=== PATIENT | male | born 1950 | race Caucasian/White ===

== ENCOUNTER 2020-08-08 09:58 | Day surgery (SDC) | payer MEDICARE, OTHER, SELFPAY ==
[2020-07-03 11:15] VITALS: BMI 28.8
[2020-08-04 09:43] VITALS: BMI 27.5
--- NOTE | 2020-08-06 10:57 | HO.ANESPROP2 ---
Documented by User: Alana Belcher 08/06/20 10:58 HPI - Anesthesia Eval Consult details Narrative: 70yo M for Colonoscopy PMFSH Past Medical History Medical History Asthma COVID-19 vaccine series completed GERD (gastroesophageal reflux disease) History of COVID-19 HTN (hypertension) Seasonal allergies Surgical History Surgical History H/O colonoscopy Hx of hernia repair Social History Social History Alcohol intake: current Alcohol intake frequency: 0-2 drinks per day Alcohol type: beer Use of substances other than those prescribed or required for medical reasons: No Are you DNR?: No Advance Directives: No (unknown) Advance Directives Information Provided: No Advance Directives on File: No (unknown) Meds Allergies Allergy/AdvReac Type Severity Reaction Status Date / Time sunflower seed Allergy Severe Hives Verified 08/04/20 09:43 Home Medications Medication Instructions Recorded Confirmed Last Taken Type albuterol sulfate 1 inh INHALATION Q4H PRN 07/03/20 07/03/20 Unknown History fluticasone propion-salmeterol 1 puff PO BID 07/03/20 07/03/20 08/08/20 History [Advair Diskus] hydrochlorothiazide 25 mg PO QAM 07/03/20 07/03/20 Unknown History multivitamin 1 tab PO DAILY 07/03/20 07/03/20 Unknown History quinapril 40 mg PO DAILY 07/03/20 07/03/20 08/08/20 History naproxen sodium [Aleve] 220 mg PO BID PRN 08/04/20 08/04/20 Unknown History Exam Exam Date and Time: August 06, 2020 1057 Height,Weight and Vital Signs: Height 5 ft 10 in Weight 87.09 kg Assessment and Plan Assessment Anesthesia Assessment: Chart Reviewed Documented by User: Regina Ryan 08/08/20 10:50 [facility] Past Medical History Medical History Asthma COVID-19 vaccine series completed GERD (gastroesophageal reflux disease) History of COVID-19 HTN (hypertension) Seasonal allergies Surgical History Surgical History H/O colonoscopy Hx of hernia repair Social History Social History Alcohol intake: current Alcohol intake frequency: 0-2 drinks per day Alcohol type: beer Use of substances other than those prescribed or required for medical reasons: No Are you DNR?: No Advance Directives: No (unknown) Advance Directives Information Provided: No Advance Directives on File: No (unknown) Meds Allergies Allergy/AdvReac Type Severity Reaction Status Date / Time sunflower seed Allergy Severe Hives Verified 08/04/20 09:43 Home Medications Medication Instructions Recorded Confirmed Last Taken Type albuterol sulfate 1 inh INHALATION Q4H PRN 07/03/20 07/03/20 Unknown History fluticasone propion-salmeterol 1 puff PO BID 07/03/20 07/03/20 08/08/20 History [Advair Diskus] hydrochlorothiazide 25 mg PO QAM 07/03/20 07/03/20 Unknown History multivitamin 1 tab PO DAILY 07/03/20 07/03/20 Unknown History quinapril 40 mg PO DAILY 07/03/20 07/03/20 08/08/20 History naproxen sodium [Aleve] 220 mg PO BID PRN 08/04/20 08/04/20 Unknown History Exam Airway Mallampati Class: II TM Dist: >3cm Neck ROM: Full
[2020-08-08 10:39] VITALS: BP 155/87; PULSE 79; RESP 16; TEMP 36.3; O2SAT 98
[2020-08-08] MEDS: Lactated Ringers 1,000 ML 100 ML IVCONT (10:54)
--- NOTE | 2020-08-08 12:07 | MHC.SHP ---
Pre-Procedural Eval Section B Chief Complaint: screening Details of Present Illness: screening Relevant Family History (Specify if Yes): No Relevant Social History: None Present Medications: see Short Stay Collaborative assessment Medical History: No relevant PMH Allergies: Allergies Allergy/AdvReac Type Severity Reaction Status Date / Time sunflower seed Allergy Severe Hives Verified 08/04/20 09:43 Review of Systems Sugical H&P ROS: Negative: Constitution, Cardiovascular, Respiratory, Neurological, Psychiatric, Hem-Onc, Allergic/Immunologic, Gastrointestinal, Genitourinary, Musculoskeletal, Integumentary, Endocrine and Eyes/Ears/Nose/Throat Exam Surgical H&P Exam: Normal: HEENT, Normal: Heart, Normal: Lungs, Normal: Extremities, Normal: Abdomen, Normal: Skin and Normal: Neurological Plan I have reviewed the history and physical and performed a pertinent physical examination on my patient. No changes have occurred unless specified.
--- NOTE | 2020-08-08 12:35 | P.BOP_ITS ---
Brief Operative Note Date of Service: 08/08/20 Pre-op diagnosis: screening Post-op diagnosis: same (colon polyps) Procedure: colonscopy Surgeon: Dawood Michelle Was an Information And Data Architect Analyst used for this Procedure?: No Estimated blood loss (mL): 0 Pathology: other (polyps x2) Condition: stable Disposition: PACU
[2020-08-08 12:38] VITALS: BP 101/64; PULSE 61; RESP 18; TEMP 36.5; O2SAT 98
[2020-08-08 12:53] VITALS: BP 124/74; PULSE 64; RESP 18; O2SAT 98
--- NOTE | 2020-08-08 13:45 | OP_ITS ---
SURGEON: Dawood Michelle MD INDICATIONS: Colon cancer screening. PREOPERATIVE DIAGNOSIS: POSTOPERATIVE DIAGNOSIS: PROCEDURE PERFORMED: Colonoscopy to the terminal ileum with biopsy and snare polypectomy. ESTIMATED BLOOD LOSS: COMPLICATIONS: ANESTHESIA: ASSISTANTS: SPECIMENS: MEDICATIONS: Monitored anesthesia care. DESCRIPTION OF PROCEDURE: History and physical performed. The risks and benefits of the procedure were explained to the patient. Informed consent was obtained. The patient was placed in the left lateral decubitus position. A digital rectal exam was performed and was found to be normal. The Olympus pediatric video colonoscope was introduced into the rectum and advanced to the cecum without difficulty. The cecum was identified by transillumination, palpation, and identification of ileocecal valve. Examination was performed and the scope was removed. He tolerated the procedure well and was taken to recovery area in stable condition. FINDINGS: The terminal ileum was normal. The visualized colonic mucosa was normal. The quality of the prep was good with some liquid stool coating the mucosa, mainly in the right colon and proximal transverse colon. Two polyps were identified. The first was located at 20 cm, was less than 5 mm and was removed with biopsy forceps. The second was located in the rectum and measured approximately 8 mm. This was removed with a snare and recovered via suction. No other polyps were identified. There was mild sigmoid diverticulosis. Retroflexed examination showed small internal hemorrhoids. There was mild sigmoid diverticulosis. IMPRESSION: Colon polyps. RECOMMENDATION: Follow up the biopsy results. MD JEAN MARIE Stone/LUCRETIAL / [id number]
== END 2020-08-08 13:15 | disposition home or self-care (01) ==
PROVIDERS: PCP Internal Medicine; Visit Provider Internal Medicine Gastroenterology
PROC: 0DJD8ZZ Inspection of Lower Intestinal Tract, Via Natural or Artificial Opening Endoscopic (ICD-10-PCS; CPT 45378; principal; 2020-08-08 11:10)
DX: Z12.11 Encounter for screening for malignant neoplasm of colon (principal); D12.8 Benign neoplasm of rectum; K63.5 Polyp of colon; K57.30 Diverticulosis of large intestine without perforation or abscess without bleeding; K64.8 Other hemorrhoids; K21.9 Gastro-esophageal reflux disease without esophagitis; I10 Essential (primary) hypertension; J45.909 Unspecified asthma, uncomplicated; Z79.51 Long term (current) use of inhaled steroids; Z79.899 Other long term (current) drug therapy; Z86.16 Personal history of COVID-19; Z87.891 Personal history of nicotine dependence
CPT/HCPCS: 45385; 45380; 88305